=== PATIENT | female | born 1960 | race Caucasian/White ===

== ENCOUNTER 2016-08-11 14:14 | Emergency (ER) | payer SELFPAY ==
--- NOTE | 2016-08-23 08:35 | ER ---
ADMIT: 08/11/2016 RM/LOC: ER [facility] MR#: [id number] [address] [phone] [address] [place] [address] Emergency Room Report SEX: F AGE: 56 : 1960 DATE: 08/11/2016 A 56-year-old female, comes to the Emergency Department with complaints of sharp stabbing left-sided chest pain associated with coughing and deep breaths. It has been present for the past several days. She does smoke. See T-sheet for remainder of history and physical. A Toradol shot relieved her pain, however, she developed some flushing of the face. She was subsequently given Benadryl. EKG was within normal limits. DIAGNOSIS: Pleuritis. She is encouraged to use Motrin for pleuritis, and to follow up this coming week with her physician, and to stop smoking. Yvon Gibbons MD/ jeanne JOB #: [id number] CC: William Rutledge MD, Attending Physician Juanito Garcia MD, Family Physician
== END 2016-08-11 15:40 | disposition home or self-care (01) ==
LOC: ER 14:14
DX: R09.1 Pleurisy (principal); F17.210 Nicotine dependence, cigarettes, uncomplicated; M81.0 Age-related osteoporosis without current pathological fracture; Z88.8 Allergy status to other drugs, medicaments and biological substances; Z79.899 Other long term (current) drug therapy

== ENCOUNTER → 2016-09-01 | Outpatient (CLI) | payer OTHER ==
--- NOTE | 2016-09-01 15:37 | NUR ---
DRUG/ALCOHOL/EVALUATION 2 HRS/ Client was referred by Rich at probation for failing a UA for using what client called as jaylin burn which she said has effederine in it. She is on probation for a posession of controled substance meth which was dropped to [facility] not cooperating with electronic warfare officer. Client said she did not know the mikael that was with her had meth. Client said she has not used meth for over 6 yrs and has only used it about 12 times. She did tran for awhile 12 yrs ago playing [employer] and would pay bills and spend the rest on [employer]. medications she is on is effexor. She has hydrocodone but does not like to take it so not on regular basis. Has pain from osteoporsis and broke a hip. Left message with probation.see eval for recommendations.
--- NOTE | 2016-09-10 15:28 | CDE ---
ADMIT: 09/01/2016 RM/LOC: [facility] MR#: [id number] [address] [facility] [address] [place] [phone] [address] [place] [address] Chemical Dependency Evaluation SEX: F AGE: 56 : 1960 CORRECTED: 09/05/2016 1039 JHONY 09/08/2016 1811 VDG A. DEMOGRAPHICS: NAME: Mil Melendez DATE OF : 1960 EVALUATING COUNSELOR: AL Iyer, [facility] DATE OF EVALUATION: 09/01/2016 B. PRESENTING PROBLEM/CHIEF COMPLAINT: This client is a adult female, age 56, who lives with her ex- in [place], [place]. She is presenting for this drug and alcohol evaluation after being referred by her parking regulation enforcement officer. She reports that she has been on probation for possession of controlled substance, methamphetamine, which was dropped to a misdemeanor and it was dropped down to not cooperating with the merchant police. She reports that she failed a UA while on probation and she reports that she had taken something called Crazy Burn that had ephedrine in it and she says that how she failed her UA. C. MEDICAL HISTORY: She reports that she broke her hip and had pins put in. She is presently taking Effexor 75 mg. She reports that she is allergic to Darvocet and tramadol. She did not report having any other physical problems. She did report that she is seeing a mental health therapist for some mental health issues, which she says she has been diagnosed with PTSD. D. WORK/SCHOOL/ HISTORY: She reports that currently she is not employed, and she has not worked for 10 years. In the past, she has worked at different auto places as a salesman. She has her GED, and she has never been in the . E. ALCOHOL/DRUG ASSESSMENT SUMMARY: ALCOHOL: Client reports that she has only taken one sip of alcohol in her life. MARIJUANA: Denies any use. COCAINE: Denies any use. METHAMPHETAMINES: Client reports she first used it at age 46. She used it for about 3 months, 2 times a month and then she used it a little bit after that and she said she used it for a total of 12 times with the last use being 6 years ago. HALLUCINOGENS: Denies any use. HEROIN: Denies any use. MISUSE OF PRESCRIPTION DRUGS: Denies any abuse. OTHER DRUGS (INHALANTS, OVER THE COUNTER, ETC): Denies any use. NICOTINE: Denies any use. ADMIT: 09/01/2016 RM/LOC: [facility] MR#: [id number] [address] [place] [phone] [address] [place] [address] Chemical Dependency Evaluation SEX: F AGE: 56 : 1960 F. LEGAL HISTORY: Client reports that 30 years ago, she had gotten charged with writing 2 bad checks. She had to pay them back and she did 6 months in [facility]. Then in 2009, she got a theft charge and she had to pay a fine. In 2014, possession of controlled substance, meth, dropped to a misdemeanor and put on probation. In June 2016, failed a UA. She claims that she took Crazy Burn and this is what made her fail. Did contact client's parking regulation enforcement officer, Rich Ramírez, and he stated that in June probation went and watched the resident suits. Her car was running out in front of one of the rooms. They found out that this was a person that she got in trouble with. That was where he lived and they saw him go over to a [place]plex where it is known that they are selling meth out there. They asked the client to do a UA. She claimed she could not go to the bathroom. She was sent to [facility]. Then on July 18, they did a home visit and did a UA and it was positive for meth, so she went to [facility] again. G. FAMILY/SOCIAL/PEER HISTORY: Client reports that she has two sons, age 39 and 34, and two daughters, age 36 and 37. She said that she does have contact with her kids. She reports that growing up her father was in and out of her life and he had some legal problems, so she did not have a good relationship with him. She did have a stepfather that she felt she had a good relationship with. She reports that she has been three times. Got when she was 16, and she states that she is not in a relationship at this time. She does live with one of her ex-husbands. H. PSYCHIATRIC/BEHAVIORAL HISTORY: Client reports that she is seeing a mental health therapist at [facility], and she reports that she has PTSD. She has never had any treatment for drug or alcohol or mental health. I. COLLATERAL INFORMATION: Client refused to sign releases so family could be contacted, so got no collateral. THE DRINKER TYPE RATING: Is a measure of how the client perceives their own drinking and/or using. This rating is indicative of how resistant or accepting the person is to the drinking problem. The client chose their rating from the following classifications: ALCOHOL ADMIT: 09/01/2016 RM/LOC: [facility] MR#: [id number] [facility] [phone] [address] [place] [address] Chemical Dependency Evaluation SEX: F AGE: 56 : 1960 Total Abstainer Light Social (non-problem) Drinker Moderate Social (non-problem) Drinker User Heavy Social (non-problem)Drinker Problem Drinker Alcoholic OTHER DRUG Nonuser Light Social (non-problem) User Moderate Social (non-problem) User Heavy Social (non-problem) User Problem User Addicted/Dependent The client rated herself as a total abstainer of alcohol and a moderate social nonproblem user of drugs. SUBSTANCE ABUSE SUBTLE SCREENING INVENTORY (SASSI): The SASSI is an assessment tool specifically designed to provide a clearer picture of what lies beneath the facade presented by most patients or clients. Scores on this assessment aid in distinguishing nonabusers from abusers, alcoholics from drug abusers and nondefensive clients from defensive ones. The incorporation of a "denial scale" further enhances the ability to make an accurate recommendation. Client scores are: Face Valid Alcohol (FVA): 0. Face Valid Other Drugs (FVOD): 0. Symptoms (SYM): 2. Obvious Attributes (OAT): 5. Subtle Attributes (SAT): 3. Defensiveness (DEF): 6. Supplemental Addiction Measure (JOSH): 7. Family versus Controls (FAM): 11. Correctional (COR): 6. Random Answering Pattern (RAP): --- These scores would indicate: The decision rule shows a low probability of having a substance use disorder. We administered the ASI. Please see attached summary sheet. K. CLINICAL IMPRESSION: This client has not been truthful for this evaluation. She failed to tell me that she had more than one UA. She stated that she had not used for 6 years. ADMIT: 09/01/2016 RM/LOC: [facility] MR#: [id number] [address] [place] [phone] [place] [address] [place] [address] Chemical Dependency Evaluation SEX: F AGE: 56 : 1960 Probation reports that she failed a UA for meth on July 18 and also got tested on August 03. This UA has been sent off to get results. She stated that her failed UA was from Crazy Burn, something that you take to lose weight. She has had several legal charges in her life and most likely she has used more than the 12 times that she reports during this evaluation. DIAGNOSES: 1. F15.20, methamphetamine use disorder, moderate. 2. Z630, problems in relationship with spouse or partner. 3. Z651, imprisonment and other incarceration. 4. Z726, gambling, playing keno. Criteria showing this diagnosis is persistent, desire, or unsuccessful efforts to cut down or control use and great deal of time spent in activities obtaining, using or recovering from the effects, craving or strong desire to use, and continued to use despite persistent or recurrent social or interpersonal problems caused or exacerbated by use. CONSEQUENCES: She has had several legal problems. She is on probation currently and has failed a UA. She has had several legal charges. L. RECOMMENDATIONS PRESENTED TO CLIENT: Recommendations are for this client to attend an intensive outpatient program and if unable to stay clean and sober, a higher level of care would be recommended. CLIENT/FAMILY RESPONSE: This client does not feel that she has a problem with drugs or alcohol, so she does not feel that she needs treatment. An attempt was made to contact client with these recommendations but there was no answer. [facility] CLINICAL ASSESSMENT CRITERIA: Low/Medium/High Dimension 1 = Intoxication and Withdrawal (i.e. history of withdrawal, level of current use): Medium. Dimension 2 = Medical (i.e. , diabetes, medications, chronic conditions): Low. Dimension 3 = Emotional/Behavior Conditions (i.e. psych history, impulsivity, depression, anxiety, trauma history): Medium. Dimension 4 = Treatment Acceptance/Resistance (i.e. past history, minimization/blame, acknowledgement of problem, pressure to seek treatment, does not feel they have a problem): Medium. ADMIT: 09/01/2016 RM/LOC: [facility] MR#: [id number] [address] [address] [address] [place] [address] Chemical Dependency Evaluation SEX: F AGE: 56 : 1960 Dimension 5 = Relapse Potential (i.e. inability to abstain, use despite consequences, significant preoccupation, relapse despite outpatient treatment attempts): High. Dimension 6 = Recovery/Living Environment (i.e. current users reside in environment, family attitude, lack of consistent adult support in living environment, high exposure to using in social/work environment): High. CRIMINOGENIC RISK FACTORS: Low/Moderate/High Antisocial Attitudes: Medium. Antisocial Peers: Medium. Self Control Skills: Medium. Family Dysfunction: Medium. Past Criminality: High. AL Iyer, [facility]/ jeanne JOB #: [id number] CC: CORRECTED: 09/05/2016 1039 JHONY 09/08/2016 1811 HARSHAD
== END | disposition home or self-care (01) ==
LOC: ADTC.GI 12:23
DX: F15.20 Other stimulant dependence, uncomplicated (principal); Z63.0 Problems in relationship with spouse or partner; Z72.6 Gambling and betting

== ENCOUNTER 2016-09-05 08:43 | Emergency (ER) | payer SELFPAY ==
--- NOTE | 2016-09-06 08:27 | ER ---
ADMIT: 09/05/2016 RM/LOC: ER [facility] MR#: [id number] 2620 [facility] [address] [place] [phone] [address] [address] Emergency Room Report SEX: F AGE: 56 : 1960 DATE: 09/05/2016 ADDENDUM: This 56-year-old white female with osteoporosis but not on any medication coming in after a fall. She has lower back pain, kind of radiating to her pelvis. CT of LS spine and pelvis are negative. We did give her just a little bit of Dilaudid 0.5 mg IM x1 just to kind of help her. Any other medication, controlled substances, she needs to get from her doctor. She may take Tylenol or Motrin until then. She needs to follow up as scheduled. CONDITION ON DISCHARGE: Improved. William Rutledge MD/ jeanne JOB #: [id number] CC: William Rutledge MD, Attending Physician UNKNOWN, Family Physician
== END 2016-09-05 10:40 | disposition home or self-care (01) ==
LOC: ER 08:43
DX: M54.5 Low back pain (principal); M81.0 Age-related osteoporosis without current pathological fracture; F17.210 Nicotine dependence, cigarettes, uncomplicated; Z88.6 Allergy status to analgesic agent; Z88.8 Allergy status to other drugs, medicaments and biological substances